=== PATIENT | female | born 1960 | race American Indian/Alaskan Native ===

== ENCOUNTER 2017-12-23 14:40 | Emergency (ER) | payer MEDICARE ==
[2017-12-23 14:44] VITALS: O2SAT 100; BMI 32.5
[2017-12-23] MEDS ORDERED: Sodium Chloride 0.9% 1,000 ML IV STA (16:04)
--- NOTE | 2017-12-23 16:04 | ED PDOC ---
History of Present Illness History of Present Illness: Pt is 57 yo female, PMH of HTN, Hypothyroid, Asthma, presents to ED with c/o bodyaches, nausea, throat pain, dizziness, cough, body aches since yesterday. No fever or chills. HPI: Influenza Time Seen by Provider: 12/23/17 14:50 Chief Complaint: Flu-like Symptoms Past Medical History Reviewed: Nursing Documentation, Vital Signs Vital Signs: Last Vital Signs Temp 98.2 F 12/23/17 14:42 Pulse 89 12/23/17 14:42 Resp 16 12/23/17 14:42 BP 172/103 H 12/23/17 14:42 Pulse Ox 100 12/23/17 14:42 - Medical History PMH: Anxiety, Asthma, Depression, Gastritis, Hypothyroidism - Family History Family History: States: Unknown Family Hx - Home Medications Home Medications: Ambulatory Orders Medication Instructions Recorded Dicyclomine [Bentyl] 10 mg PO QID #20 cap 01/28/15 Levothyroxine Sodium [Levoxyl] 0.075 mg PO DAILY 01/28/15 Omeprazole 20 mg PO DAILY 01/28/15 Zolpidem Tartrate [Ambien] 5 mg PO DAILY 01/28/15 Ondansetron ODT [Zofran ODT] 1 odt PO BID PRN #60 odt 02/02/15 Ondansetron [Zofran Odt] 8 mg PO Q8H PRN 02/02/15 Pantoprazole Sodium [Protonix] 40 mg PO DAILY 02/02/15 Polyethylene Glycol 3350 [Miralax] 17 gm PO DAILY PRN #1 bottle 02/02/15 oxyCODONE/Acetaminophen [Percocet 1 tab PO QID PRN #22 tab 02/02/15 5/325 mg Tab] valACYclovir [Valtrex] 1 gm PO TID #21 tab 03/26/15 Oxycodone HCl/Acetaminophen 1 tab PO Q6 PRN #25 tab 03/28/15 [Percocet 325 mg-5 mg] Lidocaine 5% [Lidoderm] 1 ea TD DAILY #1 kit 04/14/15 Naproxen 500 mg PO TID #30 tab 10/05/15 oxyCODONE/Acetaminophen [Percocet 1 ea PO Q6 PRN #10 tab 08/04/16 5/325 mg Tab] Guaifenesin/Pseudoephedrne HCl 1 tab PO DAILY PRN #30 ter 12/23/17 [Mucinex D 600 mg-60 mg] Ibuprofen [Motrin] 600 mg PO Q6 #20 tab 12/23/17 Promethazine HCl/Codeine 5 ml PO HS #80 ml 12/23/17 [Prometh-Codein 6.25-10 mg/5 ml] - Allergies Allergies/Adverse Reactions: Allergies Allergy/AdvReac Type Severity Reaction Status Date / Time Penicillins Allergy URTICARIA Verified 12/23/17 14:51 Review of Systems ROS Statement: Except As Marked, All Systems Reviewed And Found Negative ENT: Positive for: Nose Congestion, Throat Pain Respiratory: Positive for: Cough Physical Exam - Reviewed Nursing Documentation Reviewed: Yes Vital Signs Reviewed: Yes - Physical Exam Appears: Positive for: Well, Non-toxic, No Acute Distress Head Exam: Positive for: ATRAUMATIC, NORMAL INSPECTION, NORMOCEPHALIC Skin: Positive for: Normal Color, Warm, DRY Eye Exam: Positive for: EOMI, Normal appearance, PERRL ENT: Positive for: Normal ENT Inspection Neck: Positive for: Normal, Painless ROM Cardiovascular/Chest: Positive for: Regular Rate, Rhythm Respiratory: Positive for: CNT, Normal Breath Sounds Gastrointestinal/Abdominal: Positive for: Normal Exam, Soft Back: Positive for: Normal Inspection Extremity: Positive for: Normal ROM Neurologic/Psych: Positive for: Alert, Oriented Medical Decision Making Medical Decision Making: IV access established and diagnostics ordered. Treatment initiated with IVF, Toradol and Zorfan Pt doing well on re-eval, reports feeling greatly improved. Labs resulted and reviewed with Pt who demonstrated full understanding Advised supportive care measures at home, take medications as directed and importance of follow up with PCP was stressed. advised to return to ED if at anytime condition worsens. - Laboratory Results Result Diagrams: 12/23/17 16:28 12/23/17 16:28 - ECG O2 Sat by Pulse Oximetry: 100 Disposition - Clinical Impression Clinical Impression: Influenza-like symptoms, Viral syndrome - Patient ED Disposition Is Patient to be Admitted: No - Disposition Disposition: Routine/Home Disposition Time: 18:03 Condition: STABLE Prescriptions: Guaifenesin/Pseudoephedrne HCl [Mucinex D 600 mg-60 mg] 1 tab PO DAILY PRN #30 ter PRN Reason: congestion Ibuprofen [Motrin] 600 mg PO Q6 #20 tab Promethazine HCl/Codeine [Prometh-Codein 6.25-10 mg/5 ml] 5 ml PO HS #80 ml Instructions: Viral Upper Respiratory Infection, Adult (DC) Forms: [employer] [facility] (Amharic), [facility] ED School/Work Excuse
[2017-12-23 16:37] LABS: EOS # 0.1 K/uL (0.0-0.7); EOS % 1.4 % (0.0-4.0); HEMOGLOBIN 11.3 g/dL (12.0-16.0); LYMPH % 21.1 % (20.0-40.0); MEAN CELL VOLUME 81.6 fl (81.0-99.0); MEAN CORPUSCULAR HEMOGLOBIN 25.9 pg (27.0-31.0); MEAN CORPUSCULAR HGB CONC 31.7 g/dL (33.0-37.0); MEAN PLATELET VOLUME 10.2 fl (7.2-11.7); MONO # 0.6 K/uL (0.0-0.8); MONO % 12.4 % (0.0-10.0); NEUT # 2.9 K/uL (1.8-7.0); NEUT % 64.1 % (50.0-75.0); NRBC % 0.1 % (0.0-0.0); RBC 4.35 Mil/uL (3.80-5.20); RED CELL DISTRIBUTION WIDTH 15.6 % (11.5-14.5); WHITE BLOOD COUNT 4.5 K/uL (4.8-10.8)
[2017-12-23 16:42] LABS: ALB/GLOB RATIO 1.1 (1.0-2.1); ALBUMIN 4.2 g/dL (3.5-5.0); ALT/SGPT 29 U/L (9-52); AST/SGOT 42 U/L (14-36); BLOOD UREA NITROGEN 10 mg/dl (7-17); CALCIUM 9.4 mg/dL (8.4-10.2); GFR NON-AFRICAN AMERICAN > 60
--- NOTE | 2017-12-23 16:58 | RAD ---
Date of service: 12/23/2017 HISTORY: cough and fever COMPARISON: Chest radiograph dated 02/03/2013 TECHNIQUE: Chest PA and lateral FINDINGS: LUNGS: No active pulmonary disease. PLEURA: No significant pleural effusion identified. No pneumothorax apparent. CARDIOVASCULAR: Normal. OSSEOUS STRUCTURES: Anterior cervical fixation plate. Degenerative changes. VISUALIZED UPPER ABDOMEN: Normal. OTHER FINDINGS: Partially imaged right-sided ventriculovenous shunt redemonstrated. IMPRESSION: No active disease.
[2017-12-23 18:16] VITALS: BP 144/64; PULSE 86; RESP 17; TEMP 98.8
== END 2017-12-23 18:11 | disposition home or self-care (01) ==
LOC: H.ER 14:40
DX: J11.1 Influenza due to unidentified influenza virus with other respiratory manifestations (principal); J06.9 Acute upper respiratory infection, unspecified; E03.9 Hypothyroidism, unspecified; Z88.0 Allergy status to penicillin; I10 Essential (primary) hypertension
CPT/HCPCS: 71046; 80053; 85025; 96360; 96361; 99283; J7030

== ENCOUNTER 2018-05-12 11:57 | Emergency (ER) | payer MEDICARE ==
[2018-05-12 12:05] VITALS: BMI 36.6
--- NOTE | 2018-05-12 12:50 | ED PDOC ---
Lower Extremity Pain/Injury Time Seen by Provider: 05/12/18 12:18 Chief Complaint (Nursing): Lower Extremity Problem/Injury Chief Complaint (Provider): L hip pain History Per: Patient History/Exam Limitations: no limitations Additional Complaint(s): Pt is 4 days s/p laser treatment for varicose veins ([place]) presents with c/o pain and swelling to L lateral buttock X 2 days, took Tramadol at home without relief. States when pain comes she feels SOB and nauseous. Past Medical History Reviewed: Nursing Documentation, Vital Signs Vital Signs: Last Vital Signs Temp 97 F L 05/12/18 12:12 Pulse 112 H 05/12/18 12:12 Resp 17 05/12/18 12:12 BP 141/83 05/12/18 12:12 Pulse Ox 98 05/12/18 12:12 - Medical History PMH: Anxiety, Asthma, Depression, Gastritis, Hypothyroidism - Family History Family History: States: Unknown Family Hx - Social History Current smoker - smoking cessation education provided: No - Home Medications Home Medications: Ambulatory Orders Medication Instructions Recorded Dicyclomine [Bentyl] 10 mg PO QID #20 cap 01/28/15 Levothyroxine Sodium [Levoxyl] 0.075 mg PO DAILY 01/28/15 Omeprazole 20 mg PO DAILY 01/28/15 Zolpidem Tartrate [Ambien] 5 mg PO DAILY 01/28/15 Ondansetron ODT [Zofran ODT] 1 odt PO BID PRN #60 odt 02/02/15 Ondansetron [Zofran Odt] 8 mg PO Q8H PRN 02/02/15 Pantoprazole Sodium [Protonix] 40 mg PO DAILY 02/02/15 Polyethylene Glycol 3350 [Miralax] 17 gm PO DAILY PRN #1 bottle 02/02/15 oxyCODONE/Acetaminophen [Percocet 1 tab PO QID PRN #22 tab 02/02/15 5/325 mg Tab] valACYclovir [Valtrex] 1 gm PO TID #21 tab 03/26/15 Oxycodone HCl/Acetaminophen 1 tab PO Q6 PRN #25 tab 03/28/15 [Percocet 325 mg-5 mg] Lidocaine 5% [Lidoderm] 1 ea TD DAILY #1 kit 04/14/15 Naproxen 500 mg PO TID #30 tab 10/05/15 oxyCODONE/Acetaminophen [Percocet 1 ea PO Q6 PRN #10 tab 12/30/15 5/325 mg Tab] Guaifenesin/Pseudoephedrne HCl 1 tab PO DAILY PRN #30 ter 12/23/17 [Mucinex D 600 mg-60 mg] Ibuprofen [Motrin] 600 mg PO Q6 #20 tab 12/23/17 Promethazine HCl/Codeine 5 ml PO HS #80 ml 12/23/17 [Prometh-Codein 6.25-10 mg/5 ml] Acetaminophen with Codeine 1 tab PO Q6H PRN #10 tab 05/12/18 [Tylenol with Codeine No. 3 300 mg-30 mg] - Allergies Allergies/Adverse Reactions: Allergies Allergy/AdvReac Type Severity Reaction Status Date / Time Penicillins Allergy URTICARIA Verified 12/23/17 14:51 Wells Criteria for PE - Wells Criteria for Pulmonary Embolism Clinical Signs and Symptoms of DVT: No P.E is #1 Diagnosis, or Equally Likely: No Heart Rate >100: Yes Immobilization at least 3 days;Surgery previous 4 weeks: No Previous, objectively diagnosed PE or DVT: No Hemoptysis: No Malignancy w/treatment within 6 months, or palliative: No Total Score: 1.5 Review of Systems Constitutional: Negative for: Fever, Chills Cardiovascular: Negative for: Chest Pain, Palpitations Respiratory: Negative for: Cough, Shortness of Breath Gastrointestinal: Negative for: Nausea, Vomiting, Abdominal Pain, Diarrhea Genitourinary Female: Negative for: Dysuria, Hematuria Musculoskeletal: Positive for: Leg Pain Skin: Negative for: Rash, Lesions Neurological: Negative for: Headache Physical Exam - Reviewed Nursing Documentation Reviewed: Yes Vital Signs Reviewed: Yes - Physical Exam Appears: Positive for: Well, No Acute Distress Head Exam: Positive for: ATRAUMATIC, NORMAL INSPECTION Skin: Positive for: Normal Color, Warm, Dry Eye Exam: Positive for: Normal appearance, EOMI, PERRL Cardiovascular/Chest: Positive for: Tachycardia. Negative for: Irregularly Irregular Respiratory: Positive for: Normal Breath Sounds. Negative for: Rales, Rhonchi, Wheezing Back: Positive for: Normal Inspection Extremity: Positive for: Tenderness (L lateral hip), Other (L lateral hip edema). Negative for: Normal ROM, Pedal Edema, Calf Tenderness, Deformity, Swelling Neurologic/Psych: Positive for: Alert, Oriented - Laboratory Results Result Diagrams: 05/12/18 13:29 05/12/18 13:29 - ECG O2 Sat by Pulse Oximetry: 98 Medical Decision Making Medical Decision Makin yo female with L upper leg pain/swelling. - labs - Doppler ultrasound - Morphine Time: 14:26 CT Chest without contrast FINDINGS: PULMONARY ARTERIES: Unremarkable. No pulmonary embolism. AORTA: No acute findings. No thoracic aortic aneurysm. No aortic atherosclerotic calcification or mural plaque present. LUNGS: Unremarkable. No nodule, mass or pulmonary consolidation. PLEURAL SPACES: Unremarkable. No effusion or pneumothorax. HEART: Unremarkable. No cardiomegaly. No significant pericardial effusion. LYMPH NODES: No lymphadenopathy. BONES, CHEST WALL: Unremarkable. No fracture or destructive lesion OTHER FINDINGS: Thickened mid to distal esophagus suspicious for esophagitis. Neoplasm is not excluded and gastrointestinal consultation is recommended for follow-up or possible barium swallow. IMPRESSION: Unremarkable CT pulmonary angiogram. No pulmonary embolus. Questionable thickened mid to distal esophagus. Follow-up gastrointestinal consultation or barium swallow is advised. Time:14:21 Ultrasound FINDINGS: 2-D, color and duplex Doppler analysis of the lower extremity venous circulation using routine protocol from the femoral veins through the popliteal veins. Venous compressibility: Normal. Flow and augmentation patterns: Normal. Visualized veins upper third of calf: Normal. Wilkes cyst: None. IMPRESSION: No sonographic or Doppler evidence for DVT in left lower extremity. Disposition - Clinical Impression Clinical Impression: Hip pain - Disposition Referrals: Elias Wilkes MD [Staff Provider] - Disposition: Routine/Home Disposition Time: 17:10 Condition: STABLE Additional Instructions: FOLLOW-UP WITH VASCULAR SURGEON AND PMD WITHIN 2 DAYS FOR REEVALUATION. Prescriptions: Acetaminophen with Codeine [Tylenol with Codeine No. 3 300 mg-30 mg] 1 tab PO Q6H PRN #10 tab PRN Reason: Pain, Severe (8-10) Instructions: Hip Pain Forms: [employer] (Georgian)
[2018-05-12 13:34] LABS: BASO % 1.1 % (0.0-2.0); EOS # 0.1 K/uL (0.0-0.7); EOS % 1.7 % (0.0-4.0); HEMOGLOBIN 11.3 g/dL (12.0-16.0); LYMPH # 1.3 K/uL (1.0-4.3); LYMPH % 30.9 % (20.0-40.0); MEAN CELL VOLUME 87.1 fl (81.0-99.0); MEAN CORPUSCULAR HEMOGLOBIN 27.3 pg (27.0-31.0); MEAN CORPUSCULAR HGB CONC 31.4 g/dL (33.0-37.0); MONO # 0.4 K/uL (0.0-0.8); NEUT # 2.4 K/uL (1.8-7.0); NEUT % 57.3 % (50.0-75.0); RBC 4.15 Mil/uL (3.80-5.20); RED CELL DISTRIBUTION WIDTH 15.6 % (11.5-14.5); WHITE BLOOD COUNT 4.2 K/uL (4.8-10.8)
[2018-05-12 13:39] LABS: INR 0.9; PROTHROMBIN TIME 10.6 Seconds (9.8-13.1)
[2018-05-12 13:42] LABS: PARTIAL THROMBOPLASTIN TIME 36.3 Seconds (25.6-37.1)
[2018-05-12 13:44] LABS: ALB/GLOB RATIO 1.1 (1.0-2.1); ALBUMIN 4.2 g/dL (3.5-5.0); ALT/SGPT 34 U/L (9-52); AST/SGOT 34 U/L (14-36); BLOOD UREA NITROGEN 20 mg/dl (7-17); CALCIUM 9.8 mg/dL (8.4-10.2); GFR NON-AFRICAN AMERICAN > 60
[2018-05-12] MEDS ORDERED: Sodium Chloride 0.9% 50 ML IV ONE (13:56)
[2018-05-12] MEDS ORDERED: Iodixanol 320 MG/ML 100 ML BOTTLE IV ONE (13:56)
--- NOTE | 2018-05-12 14:24 | US ---
Date of service: 05/12/2018 HISTORY: LLE swelling, 4 days s/p laser varicose vein tx. PRIORS: None. FINDINGS: 2-D, color and duplex Doppler analysis of the lower extremity venous circulation using routine protocol from the femoral veins through the popliteal veins. Venous compressibility: Normal. Flow and augmentation patterns: Normal. Visualized veins upper third of calf: Normal. Wilkes cyst: None. IMPRESSION: No sonographic or Doppler evidence for DVT in left lower extremity.
--- NOTE | 2018-05-12 14:30 | CT ---
Date of service: 05/12/2018 PROCEDURE: CT Chest with contrast (Pulmonary Angiogram) HISTORY: SOB COMPARISON: None available. TECHNIQUE: Axial computed tomography images were obtained of the chest in the pulmonary arterial phase of enhancement. Coronal and sagittal reformatted images were created and reviewed. Intravenous contrast dose: Visipaque 320, 99 cc Radiation dose: Total exam DLP = 336.32 mGy-cm. This CT exam was performed using one or more of the following dose reduction techniques: Automated exposure control, adjustment of the mA and/or kV according to patient size, and/or use of iterative reconstruction technique. FINDINGS: PULMONARY ARTERIES: Unremarkable. No pulmonary embolism. AORTA: No acute findings. No thoracic aortic aneurysm. No aortic atherosclerotic calcification or mural plaque present. LUNGS: Unremarkable. No nodule, mass or pulmonary consolidation. PLEURAL SPACES: Unremarkable. No effusion or pneumothorax. HEART: Unremarkable. No cardiomegaly. No significant pericardial effusion. LYMPH NODES: No lymphadenopathy. BONES, CHEST WALL: Unremarkable. No fracture or destructive lesion OTHER FINDINGS: Thickened mid to distal esophagus suspicious for esophagitis. Neoplasm is not excluded and gastrointestinal consultation is recommended for follow-up or possible barium swallow. IMPRESSION: Unremarkable CT pulmonary angiogram. No pulmonary embolus. Questionable thickened mid to distal esophagus. Follow-up gastrointestinal consultation or barium swallow is advised.
--- NOTE | 2018-05-12 16:15 | CT ---
Date of service: 05/12/2018 PROCEDURE: CT Abdomen and Pelvis without intravenous contrast HISTORY: R lower back pain/swelling COMPARISON: Abdomen pelvis CT with contrast 01/28/2015. TECHNIQUE: Helical CT of the abdomen and pelvis was performed without oral or intravenous contrast as per referring physician request. Coronal and sagittal reformats were generated. Contrast dose: None Radiation dose: Total exam DLP = 841.06 mGy-cm. This CT exam was performed using one or more of the following dose reduction techniques: Automated exposure control, adjustment of the mA and/or kV according to patient size, and/or use of iterative reconstruction technique. FINDINGS: LOWER THORAX: Thickened distal esophagus are reiterated. There is a probable small hiatal hernia. LIVER: Unremarkable. No gross lesion or ductal dilatation. GALLBLADDER AND BILE DUCTS: Atypical gallbladder located at the lateral margins of the right lobe liver than versus exophytic cyst with the former favored. Gallbladder fossa appears unremarkable. No obvious extrahepatic biliary tree dilatation appreciated. PANCREAS: Unremarkable. No gross lesion or ductal dilatation. SPLEEN: Unremarkable. ADRENALS: Unremarkable. No mass. KIDNEYS AND URETERS: Normal renal excretory function related to iodinated contrast material previously administered for chest CT on 05/12/2018 earlier today. No hydronephrosis. Stable tiny lucency midpole right kidney laterally. VASCULATURE: Unremarkable. No aortic aneurysm. No aortic atherosclerotic calcification or mural plaque present. BOWEL: Postop changes seen related to a collapsed stomach likely secondary to prior gastric sleeve procedure. Mildly prominent fecal material seen throughout the colon suggestive of constipation. Clinically correlate further. No bowel obstruction identified grossly. No pericolic or perienteric reactive change. APPENDIX: Unremarkable. Normal appendix. PERITONEUM: Unremarkable. No free fluid. No free air. LYMPH NODES: Unremarkable. No enlarged lymph nodes. BLADDER: Unremarkable. REPRODUCTIVE: Unremarkable. BONES: Grade 1 spondylolisthesis L4-5, degenerative. OTHER FINDINGS: None. IMPRESSION: 1. Possible constipation. No bowel obstruction appreciable. 2. Postop changes at the stomach suggest gastric sleeve surgery previously. Clinically correlate. 3. Atypical gallbladder location lateral to the right lobe liver again evident. 4. Stable lucency right lobe liver in this noncontrast exam.
[2018-05-12 16:56] VITALS: BP 119/71; PULSE 78; RESP 18; TEMP 98.5
[2018-05-14 14:18] VITALS: O2SAT 98
== END 2018-05-12 17:40 | disposition home or self-care (01) ==
LOC: H.ER 11:57
DX: M25.552 Pain in left hip (principal); E03.9 Hypothyroidism, unspecified; F41.9 Anxiety disorder, unspecified; Z88.0 Allergy status to penicillin; Z98.890 Other specified postprocedural states
CPT/HCPCS: 71275; 74176; 80053; 85025; 85378; 85610; 85730; 93971; 96374; 99284; J2270; Q9967